=== PATIENT | female | born 2000 | race Two or more races ===

== ENCOUNTER 2024-06-15 08:46 | Emergency (ER) | payer BC ==
[~2024-06-15] VITALS: Ht 157.5 cm; Wt 101.6 kg
[2024-06-15] MEDS: IV NORMAL SALINE 1000 ML BAG IV ONE (09:29)
[2024-06-15] MEDS ORDERED: ACETAMINOPHEN 500 MG TABLET ONE (09:34)
[2024-06-15 09:35] LABS: BASOPHILS % (AUTO) 0.2 % (0.0-2.0); EOSINOPHILS % (AUTO) 0.1 % (0.0-7.0); HEMATOCRIT 32.6 % (31.2-41.9); LYMPHOCYTES # (AUTO) 0.5 K/uL (0.8-4.8); LYMPHOCYTES % (AUTO) 4.1 % (20.5-51.5); MEAN CORPUSCULAR HEMOGLOBIN 29.1 uug (24.7-32.8); MEAN CORPUSCULAR HGB CONC 34 g/dL (32.3-35.6); MEAN CORPUSCULAR VOLUME 86.6 fL (75.5-95.3); MONOCYTES # (AUTO) 0.5 K/uL (0.1-1.30); MONOCYTES % (AUTO) 4.3 % (0.0-11.0); NEUTROPHILS # (AUTO) 10.1 K/uL (1.8-8.9); NEUTROPHILS % (AUTO) 91.3 % (38.5-71.5); PLATELET COUNT (AUTO) 189 K/uL (179-408); RED BLOOD CELL COUNT(AUTO) 3.77 MIL/uL (3.63-4.92); RED CELL DISTRIBUTION WIDTH 13.6 % (12.3-17.7); WHITE BLOOD COUNT (AUTO) 11.1 K/uL (3.8-11.8)
[2024-06-15 09:36] VITALS: TEMP 101.4
[2024-06-15] MEDS: ACETAMINOPHEN 500 MG TABLET PO ONE (09:36)
[2024-06-15 09:56] LABS: DIFFERENTIAL COMMENT 1
[2024-06-15 10:08] LABS: ALANINE AMINOTRANSFERASE 42 U/L (14-59); ALBUMIN 2.6 g/dL (3.4-5.0); ALKALINE PHOSPHATASE 74 U/L (50-136); ASPARTATE AMINOTRANSFERASE 23 U/L (15-37); BILIRUBIN,DIRECT 0.2 mg/dL (0.0-0.2); BILIRUBIN,TOTAL 0.4 mg/dL (0.2-1.0); CALCIUM 7.9 mg/dL (8.5-10.1); CARBON DIOXIDE 20 mmol/L (21-32); CHLORIDE 106 mmol/L (98-107); GLUCOSE 215 mg/dL (74-106); POTASSIUM 3.6 mmol/L (3.5-5.1); SODIUM SERUM 137 mmol/L (136-145); TOTAL PROTEIN, SERUM 6.7 g/dL (6.4-8.2); UREA NITROGEN, BLOOD 12 mg/dL (7-18)
[2024-06-15] MEDS ORDERED: DEXAMETHASONE SOD PHOSPHATE 4 MG INJ ONE (11:06)
[2024-06-15] MEDS ORDERED: KETOROLAC TROMETHAMINE 15 MG INJ ONE (11:06)
[2024-06-15] MEDS: DEXAMETHASONE SOD PHOSPHATE 4 MG INJ IV ONE (11:08)
[2024-06-15] MEDS: KETOROLAC TROMETHAMINE 15 MG INJ IVP ONE (11:09)
[2024-06-15] MEDS ORDERED: ACET1TAB23 PO (11:21)
[2024-06-15 11:35] VITALS: BP 127/68; O2SAT 99
[2024-06-15] MEDS ORDERED: CEFD300C3 PO (14:15)
== END 2024-06-15 11:36 | disposition home or self-care (01) ==
LOC: ER 08:53
DX: B34.9 Viral infection, unspecified (principal); G43.909 Migraine, unspecified, not intractable, without status migrainosus; R73.9 Hyperglycemia, unspecified; R07.89 Other chest pain; R11.2 Nausea with vomiting, unspecified; R53.81 Other malaise; Z20.822 Contact with and (suspected) exposure to COVID-19
CPT/HCPCS: 99285; 96374; 96361; 71045; 96375; 87426; 87804 ×2; 80076; 80048; 85025; 84145; 85730; 87040 ×2; 84484; 36415; 93005; 83605; J1885; J1100; J7040; 87077; A4606; A4663; A9150